=== PATIENT | female | born 1990 | race Caucasian/White ===

== ENCOUNTER 2018-05-09 22:49 | Emergency (ER) | payer OTHER ==
[~2018-05-09] VITALS: Ht 160 cm; Wt 58.5 kg
[~2018-05-09 22:49] MED LIST: AZIT250 PO; BENZ100A PO; CEPH500 PO; CODACE30 PO; CYCL10 PO; Cleocin HCl150 MG PO; Cleocin HCl300 MG PO; DIPH25 PO; Flagyl500 MG PO; HYDACE5 PO; HYOS.125 SL; IBUP800 PO; LEVFLO500; Motrin600 MG PO; Mucinex600 MG PO; Norco 5-325 Ta1 EACH PO; ONDA4ODT MM; PHENA100 PO; RANI150; RXCYCL10 PO; RXHYDACE PO; SULTRIDS PO; TRAM50 PO; Ultram50 MG PO; Zithromax250 MG PO; Zofran Odt4 MG SL; Zofran8 MG PO
[2018-05-10 00:45] LABS: U Amphetamine Screen Not Detected; U Barbituate Screen Not Detected; U Benzodiazapine Screen Not Detected; U Buprenorphine Screen Not Detected; U Cannabinoids Screen DETECTED; U Cocaine Screen Not Detected; U Methadone Screen Not Detected; U Methamphetamine Screen Not Detected; U Opiates Screen Not Detected; U Oxycodone Screen Not Detected; U Phencyclidine Screen Not Detected; U Propoxyphene Screen Not Detected
== END 2018-05-10 01:17 | disposition home or self-care (01) ==
LOC: ER 22:49
PROVIDERS: Emergency Medicine
DX: Z00.8 Encounter for other general examination (principal); Z88.0 Allergy status to penicillin; Z87.891 Personal history of nicotine dependence
CPT/HCPCS: 96372; 99284-25; J0696

== ENCOUNTER → 2018-09-15 | Outpatient (CLI) | payer OTHER | END | disposition home or self-care (01) | LOC: PLD 12:39 → LAB SHORT 12:39 | DX: N87.9 Dysplasia of cervix uteri, unspecified (principal) | CPT/HCPCS: 88305 ==

== ENCOUNTER 2019-07-02 16:00 | Inpatient (IN) | payer OTHER ==
[~2019-07-02] VITALS: Ht 160 cm; Wt 80.0 kg
[2019-07-02] MEDS ORDERED: PRENATAL TABLE1 EAC2 (16:27)
[2019-07-02 16:45] LABS: BASOPHILS PERCENT AUTO 1 % (0-2); EOSINOPHILS ABSOLUTE AUTO 0.27 K/mm3 (0.00-0.68); EOSINOPHILS PERCENT AUTO 1 % (0-6); Hematocrit 37.8 % (33.0-51.0); Hemoglobin 12.3 g/dL (11.5-16.0); IMMATURE GRAN ABSOLUTE AUTO 0.63 K/mm3 (0.00-0.10); IMMATURE GRAN PERCENT AUTO 3 % (0-1); LYMPHOCYTES ABSOLUTE AUTO 3.28 K/mm3 (0.84-5.20); LYMPHOCYTES PERCENT AUTO 17 % (21-46); MONOCYTES PERCENT AUTO 5 % (4-13); Mean Corpuscular HGB 29.9 pg (26.0-34.0); Mean Corpuscular HGB Conc 32.5 g/dL (31.5-36.5); Mean Corpuscular Volume 92 fL (80-100); NEUTROPHILS ABSOLUTE AUTO 13.63 K/mm3 (1.96-9.15); NEUTROPHILS PERCENT AUTO 72 % (41-73); Platelet Count 488 K/mm3 (150-400); RDW Standard Deviation 43.2 fL (35.1-46.3); Red Blood Cell Count 4.12 M/mm3 (3.80-5.20); White Blood Cell Count 18.91 K/mm3 (4.00-11.30)
--- NOTE | 2019-07-03 18:54 | NUR ---
REPORT TO ORION Adkins
[2019-07-04 05:50] LABS: BASOPHILS ABSOLUTE AUTO 0.08 K/mm3 (0.00-0.23); BASOPHILS PERCENT AUTO 0 % (0-2); EOSINOPHILS ABSOLUTE AUTO 0.29 K/mm3 (0.00-0.68); EOSINOPHILS PERCENT AUTO 2 % (0-6); Hematocrit 32.8 % (33.0-51.0); Hemoglobin 10.7 g/dL (11.5-16.0); IMMATURE GRAN ABSOLUTE AUTO 0.33 K/mm3 (0.00-0.10); IMMATURE GRAN PERCENT AUTO 2 % (0-1); LYMPHOCYTES ABSOLUTE AUTO 3.48 K/mm3 (0.84-5.20); LYMPHOCYTES PERCENT AUTO 18 % (21-46); MONOCYTES ABSOLUTE AUTO 1.25 K/mm3 (0.16-1.47); MONOCYTES PERCENT AUTO 7 % (4-13); Mean Corpuscular HGB 30.1 pg (26.0-34.0); Mean Corpuscular HGB Conc 32.6 g/dL (31.5-36.5); Mean Corpuscular Volume 92 fL (80-100); NEUTROPHILS PERCENT AUTO 72 % (41-73); Platelet Count 416 K/mm3 (150-400); RDW Coefficient Variation 12.9 % (11.7-14.2); RDW Standard Deviation 43.7 fL (35.1-46.3); Red Blood Cell Count 3.56 M/mm3 (3.80-5.20); White Blood Cell Count 19.13 K/mm3 (4.00-11.30)
--- NOTE | 2019-07-04 13:58 | NUR ---
CONSULT. PLANNING ON DISCHARGE TO HOME THIS AFTERNOON. FEELS BABY IS LATCHING OK BUT WOULD LIKE ASSISTANCE. INSTRUCT/DEMO POSITIONING TO HELP OBTAIN A DEEPER ASYMETRIC LATCH, FURTHER WIDEN THE LATCH UNTIL COMFORTABLE, STIMULATE BABY TO CONTINUE SUCKLING, AND CHECK NIPPLE SHAPE UPON RELEASE TO FURTHER EVALUATE THE LATCH. INSTRUCT IN CHANGES TO EXPECT DURING THE FIRST WEEK WITH BABY AND WITH FEEDINGS AND REFERRED TO [facility] FOR PHOTOS AND INFORMATION. QUESTIONS ANSWERED. BOTH PARENTS LOVING WITH BABY.
[2019-07-04] MEDS ORDERED: IBUP800 (15:04)
--- NOTE | 2019-07-04 15:28 | NUR ---
DISCHARGE PARENTS VERBALIZE UNDERSTANDING OF DC INSTRUCTIONS AND FOLLOW UP APPOINTMENTS. CARING FOR SELF AND BABY INDEPENDANTLY. LOCHIA SCANT. NO QUESTIONS OR CONCERNS. DC HOME STABLE.
== END 2019-07-04 15:20 | disposition home or self-care (01) | DRG 807 ==
LOC: OBS 16:00 → BC 16:19
PROVIDERS: ADMIT Nurse Practitioner Obstetrics & Gynecology
PROC: 3E0P7VZ Introduction of Hormone into Female Reproductive, Via Natural or Artificial Opening (ICD-10-PCS; 2019-07-02)
PROC: 10E0XZZ Delivery of Products of Conception, External Approach (ICD-10-PCS; principal; 2019-07-03)
PROC: 10907ZC Drainage of Amniotic Fluid, Therapeutic from Products of Conception, Via Natural or Artificial Opening (ICD-10-PCS; 2019-07-03)
PROC: 3E033VJ Introduction of Other Hormone into Peripheral Vein, Percutaneous Approach (ICD-10-PCS; 2019-07-03)
PROC: 3E0R3BZ Introduction of Anesthetic Agent into Spinal Canal, Percutaneous Approach (ICD-10-PCS; 2019-07-03)
DX: O12.24 Gestational edema with proteinuria, complicating childbirth (principal); Z37.0 Single live birth; Z3A.40 40 weeks gestation of pregnancy; O99.334 Smoking (tobacco) complicating childbirth; F17.200 Nicotine dependence, unspecified, uncomplicated; O69.89X0 Labor and delivery complicated by other cord complications, not applicable or unspecified
CPT/HCPCS: 36415; 51702; 85025; 86900; 86901; 90471; 90686; 90707; J1885; J2001; J2210; J2405; J2590; J3010; J7120

== ENCOUNTER → 2021-10-31 | Outpatient (CLI) | payer OTHER ==
[~2021-10-31] MED LIST changes: +IBUP800; +PRENATAL TABLE1 EAC2
== END | disposition home or self-care (01) ==
LOC: LAB 15:29 → LAB SHORT 15:29
DX: D22.5 Melanocytic nevi of trunk (principal)
CPT/HCPCS: 88305

== ENCOUNTER → 2024-01-26 | Outpatient (CLI) | payer OTHER | LOC: LAB SHORT 11:05 → LAB 11:05 | DX: N39.0 Urinary tract infection, site not specified (principal) | CPT/HCPCS: 87077; 87086; 87186 ==